=== PATIENT | male | born 1950 | race Caucasian/White ===

== ENCOUNTER 2020-09-22 13:12 | Inpatient (IN) ==
[2020-09-22] MEDS ORDERED: NOREPINEPHRINE 4 MG/4 ML VIAL IV ONE (13:17)
[2020-09-22] MEDS ORDERED: SODIUM CHLORIDE 0.9% 500 ML IV STA (13:18)
[2020-09-22 13:30] LABS: Eosinophils % 0.5 % (0.00-10.9); Hematocrit 26.4 VOL% (42.0-52.0); Hemoglobin 8.1 GM/DL (14.0-18.0); Immature Granulocytes % 8.2 %; Lymphocytes % 27.7 % (21.2-54.2); Mean Corpuscular HGB Conc 30.7 GM/DL (32-36); Mean Corpuscular Volume 98.1 FL (87-102); Mean Platelet Volume 11.1 FL (9.6-12.0); Monocytes % 5.2 % (1.7-12.7); Neutrophils % 58.4 % (38.7-73.9); Platelet Count 103 T/CUMM (130-400); Red Blood Count 2.69 MC/CUMM (3.8-5.5); Red Cell Distribution Width 14.6 % (9.3-17.3); White Blood Count 3.7 T/CUMM (4-12)
[2020-09-22] MEDS: NOREPINEPHRINE 16 MG in SODIUM CHLORIDE 0.9% 234 ML IV PRN (13:41)
[2020-09-22] MEDS ORDERED: NOREPINEPHRINE 8 MG in SODIUM CHLORIDE 0.9% 242 ML IV PRN (13:50)
[2020-09-22 13:51] LABS: INR 1.3; PT Patient Result 14.4 SECS (10.5-12.0)
[2020-09-22 13:53] LABS: Band Neutrophils 7 % (0-10); Burr Cells 1+; Eosinophils 1 % (0-10); Lymphocytes 30 % (20-55); Poikilocytosis 1+; Schistocytes Few; Segmented Neutrophils 55 % (50-85); Total Cells Counted 100
[2020-09-22 13:54] LABS: Elliptocytes Few; Hypochromasia Slight; Platelet Estimate Adequate
[2020-09-22] MEDS ORDERED: EPINEPHrine 1 MG/ML VIAL ONE ×2 (14:01→20:49)
[2020-09-22 14:02] LABS: Albumin 2.7 G/DL (3.4-5.0); Bilirubin,Total 0.4 MG/DL (0.2-1.0); Calcium 7.4 MG/DL (8.5-10.1); Osmolality,Calculated 342.5 MOS/KG (273-304); Total Protein 6.1 G/DL (6.4-8.2)
[2020-09-22 14:06] LABS: Potassium 7.6 MMOL/L (3.5-5.1)
[2020-09-22] MEDS ORDERED: INSULIN REGULAR 100 UNIT/ML ONE (14:09)
[2020-09-22] MEDS ORDERED: SODIUM BICARB INJ 150 MEQ in DEXTROSE 5% 850 ML IV SCH (14:30)
[2020-09-22] MEDS ORDERED: INSULIN REGULAR 100 UNIT/ML IV ONE (14:30)
[2020-09-22] MEDS ORDERED: ALBUTEROL 2.5 MG/3 ML NEB RESP TX PRN (14:34)
[2020-09-22] MEDS ORDERED: ACETAMINOPHEN 325 MG TABLET PO PRN (14:36)
[2020-09-22] MEDS ORDERED: ONDANSETRON 4 MG/2 ML VIAL IV PRN (14:36)
[2020-09-22] MEDS ORDERED: FAMOTIDINE 20 MG/2 ML VIAL IV SCH (15:00)
[2020-09-22] MEDS ORDERED: HEPARIN LOCK FLUSH 500 UNIT/5 ML SYRINGE IV ONE ×3 (15:05→15:07)
[2020-09-22] MEDS ORDERED: DEXTROSE 50% 25 GM/50 ML VIAL IV PRN (15:06)
[2020-09-22] MEDS ORDERED: GLUCAGON 1 MG VIAL IM PRN (15:06)
[2020-09-22 15:28] LABS: ABG Base Excess -23.8 MMOL/L (-2.5-2.5); ABG HCO3 7.3 MMOL/L (20-26); ABG Oxygen Saturation 98.8 % (95-100); ABG PCO2 35.7 MM HG (35-48); ABG TCO2 7.6 MMOL/L (23-27); Pt O2 Delivery Device Ventilator
[2020-09-22 15:33] LABS: ABG PH 6.925 (7.35-7.45)
[2020-09-22] MEDS ORDERED: fentaNYL 100 MCG/2 ML VIAL IV ONE (16:03)
[2020-09-22 16:41] LABS: INR 1.3; PT Patient Result 14.7 SECS (10.5-12.0)
[2020-09-22 16:42] LABS: Partial Thromboplastin Time 48.9 SECS (23.9-33.8)
[2020-09-22 16:48] LABS: CKMB % 1.4 %; High Sensitive Troponin I* 65.1 ng/L (0-78)
[2020-09-22] MEDS ORDERED: HEPARIN 5,000 UNIT/1 ML VIAL IV ONE (16:51)
[2020-09-22] MEDS: fentaNYL INJ 1,250 MCG in SODIUM CHLORIDE 0.9% 225 ML IV PRN ×2 (16:57→20:17)
[2020-09-22 17:00] LABS: Calcium 7.9 MG/DL (8.5-10.1); Osmolality,Calculated 344.1 MOS/KG (273-304)
[2020-09-22 17:02] LABS: Potassium 6.1 MMOL/L (3.5-5.1)
[2020-09-22] MEDS: CISATRACURIUM 10 MG/5 ML VIAL IV PRN ×2 (17:05→20:00)
[2020-09-22] MEDS: SODIUM BICARB INJ 150 MEQ in DEXTROSE 5% 1,000 ML IV SCH (17:05)
[2020-09-22] MEDS: FAMOTIDINE 20 MG/2 ML VIAL IV SCH (17:17)
[2020-09-22 17:21] LABS: ABG Base Excess -24.6 MMOL/L (-2.5-2.5); ABG HCO3 7.7 MMOL/L (20-26); ABG Oxygen Saturation 98.9 % (95-100); ABG PCO2 31.9 MM HG (35-48); ABG TCO2 7.1 MMOL/L (23-27)
[2020-09-22 17:22] LABS: ABG PH 6.964 (7.35-7.45)
[2020-09-22] MEDS: INSULIN REGULAR 100 UNIT/ML IV SCH ×2 (17:51→20:21)
[2020-09-22] MEDS ORDERED: SODIUM BICARBONATE 50 MEQ/50 ML VIAL IV ONE (17:52)
[2020-09-22] MEDS: PIPERACILLIN/TAZOBACTAM 3,375 MG in SODIUM CHLORIDE 0.9% 100 ML IV SCH (18:15)
[2020-09-22] MEDS ORDERED: CISATRACURIUM 10 MG/5 ML VIAL IV STA (18:29)
[2020-09-22 18:42] LABS: Bilirubin,Urine Negative (Negative); Blood, Urine Large mg/dL (Negative); Glucose,Urine (UA) Negative (Negative); Ketones,Urine Negative (Negative); Nitrite,Urine Negative (Negative); Protein,Urine 100 MG/DL; RBC,Urine 12808 /HPF (0-4); Urine Appearance CLOUDY (Clear); Urine Color Red (Yellow); Urine Specific Gravity 1.013 (1.001-1.035); Urine Urobilinogen < 2.0 EU/DL (0.2-1.0)
[2020-09-22] MEDS: MINERAL OIL/PETROLATUM OPH OINT 3.5 GM TUBE BOTH EYES SCH ×2 (18:47→21:35)
[2020-09-22] MEDS: fentaNYL 100 MCG/2 ML VIAL IV PRN ×2 (19:45→21:21)
[2020-09-22] MEDS ORDERED: HEPARIN 10,000 UNIT/10 ML VIAL IV SCH (20:15)
[2020-09-22 21:54] LABS: Hepatitis B Surface Ag Quant < 0.10 Index; Hepatitis B Surface Ag Result Non-Reactive (NonReactive)
[2020-09-22] MEDS: fentaNYL INJ 2,500 MCG in SODIUM CHLORIDE 0.9% 450 ML IV PRN (22:16)
[2020-09-22 23:00] LABS: ABG Base Excess -10.8 MMOL/L (-2.5-2.5); ABG HCO3 15.8 MMOL/L (20-26); ABG PCO2 26.9 MM HG (35-48); ABG PH 7.328 (7.35-7.45); ABG TCO2 13.2 MMOL/L (23-27)
[2020-09-22 23:13] LABS: Basophils % 0.1 % (0.0-0.8); Eosinophils % 0.1 % (0.00-10.9); Hematocrit 20.8 VOL% (42.0-52.0); Immature Granulocytes % 6.4 %; Immature Granulocytes Absolute 0.49 #; Lymphocytes # 0.1 10*3/uL (1.4-4.0); Lymphocytes % 1.2 % (21.2-54.2); Mean Corpuscular HGB Conc 33.7 GM/DL (32-36); Mean Corpuscular Volume 89.7 FL (87-102); Mean Platelet Volume 11.3 FL (9.6-12.0); Monocytes % 6.9 % (1.7-12.7); Neutrophils % 85.3 % (38.7-73.9); Platelet Count 102 T/CUMM (130-400); Red Blood Count 2.32 MC/CUMM (3.8-5.5); Red Cell Distribution Width 14.3 % (9.3-17.3); White Blood Count 7.7 T/CUMM (4-12)
[2020-09-22 23:26] LABS: Alanine Aminotransferase 164 U/L (16-61); Albumin 2.3 G/DL (3.4-5.0); Alkaline Phosphatase 115 U/L (45-117); Aspartate Amino Transferase 247 U/L (0-37); Bilirubin,Total < 0.39 MG/DL (0.2-1.0); Blood Urea Nitrogen 196 MG/DL (7-18); CKMB % 1.2 %; Calcium 7.4 MG/DL (8.5-10.1); Carbon Dioxide 15 MMOL/L (21-32); Estimated Glom Filtration Rate 2 ML/MIN; Glucose 211 MG/DL (74-106); Osmolality,Calculated 346.7 MOS/KG (273-304); Potassium 4.4 MMOL/L (3.5-5.1); Sodium 138 MMOL/L (136-145); Total Protein 5.7 G/DL (6.4-8.2)
[2020-09-22] MEDS ORDERED: SODIUM CHLORIDE 0.9% 1,000 ML IV PRN (23:49)
[2020-09-22 23:51] LABS: INR 1.5; Partial Thromboplastin Time 59.8 SECS (23.9-33.8)
[2020-09-23] MEDS: INSULIN REGULAR 100 UNIT/ML IV SCH ×7 (00:18→22:28)
[2020-09-23] MEDS: CISATRACURIUM 10 MG/5 ML VIAL IV PRN (00:19)
[2020-09-23 01:35] LABS: Band Neutrophils 3 % (0-10); Lymphocytes 2 % (20-55); Segmented Neutrophils 88 % (50-85); Total Cells Counted 100
[2020-09-23 01:36] LABS: Burr Cells 1+; Hypochromasia Slight; Platelet Estimate Decreased
[2020-09-23 01:37] LABS: Microcytosis 1+
[2020-09-23 01:39] LABS: Elliptocytes Few; Poikilocytosis 1+; Schistocytes Few
[2020-09-23] MEDS: fentaNYL INJ 2,500 MCG in SODIUM CHLORIDE 0.9% 450 ML IV PRN (03:48)
[2020-09-23 05:08] LABS: ABG Base Excess -4.7 MMOL/L (-2.5-2.5); ABG HCO3 20.5 MMOL/L (20-26); ABG PCO2 27.7 MM HG (35-48); ABG PH 7.435 (7.35-7.45); ABG TCO2 17.1 MMOL/L (23-27)
[2020-09-23 05:39] LABS: Albumin 2.3 G/DL (3.4-5.0); Bilirubin,Total 0.4 MG/DL (0.2-1.0); Calcium 6.8 MG/DL (8.5-10.1); Osmolality,Calculated 347.3 MOS/KG (273-304); Potassium 3.9 MMOL/L (3.5-5.1); Total Protein 5.1 G/DL (6.4-8.2)
[2020-09-23 05:41] LABS: High Sensitive Troponin I* 162.1 ng/L (0-78)
[2020-09-23] MEDS: PIPERACILLIN/TAZOBACTAM 3,375 MG in SODIUM CHLORIDE 0.9% 100 ML IV SCH ×2 (05:51→16:45)
[2020-09-23] MEDS: SODIUM BICARB INJ 150 MEQ in DEXTROSE 5% 1,000 ML IV SCH ×2 (05:52)
[2020-09-23 06:12] LABS: RBC,Urine 20788 /HPF (0-4)
[2020-09-23 06:14] LABS: Glucose,Urine (UA) Negative (Negative); Ketones,Urine Negative (Negative); Nitrite,Urine Negative (Negative); Protein,Urine >=500 MG/DL; Urine Appearance Cloudy (Clear); Urine Color Red (Yellow); Urine Specific Gravity 1.005 (1.001-1.035)
[2020-09-23 06:15] LABS: Bilirubin,Urine Negative (Negative); Blood, Urine 50 mg/dL (Negative); Urine Urobilinogen < 2.0 EU/DL (0.2-1.0)
[2020-09-23 07:41] LABS: Eosinophils % 0.2 % (0.00-10.9); Hematocrit 24.9 VOL% (42.0-52.0); Immature Granulocytes % 11.2 %; Immature Granulocytes Absolute 0.62 #; Lymphocytes # 0.2 10*3/uL (1.4-4.0); Lymphocytes % 2.9 % (21.2-54.2); Mean Corpuscular HGB Conc 34.1 GM/DL (32-36); Mean Corpuscular Volume 85.9 FL (87-102); Mean Platelet Volume 10.7 FL (9.6-12.0); Monocytes % 6.9 % (1.7-12.7); Neutrophils % 78.8 % (38.7-73.9); Red Cell Distribution Width 14.7 % (9.3-17.3); White Blood Count 5.5 T/CUMM (4-12)
[2020-09-23 07:43] LABS: Hemoglobin 8.5 GM/DL (14.0-18.0); Platelet Count 65 T/CUMM (130-400)
[2020-09-23 07:58] LABS: Eosinophils 1 % (0-10); Lymphocytes 2 % (20-55); Segmented Neutrophils 90 % (50-85); Total Cells Counted 100
[2020-09-23 07:59] LABS: Burr Cells Slight; Hypochromasia Slight; Microcytosis 1+
[2020-09-23 08:00] LABS: Ovalocytes Slight; Platelet Estimate Decreased
[2020-09-23] MEDS ORDERED: CALCIUM GLUCONATE 1,000 MG in SODIUM CHLORIDE 0.9% 100 ML IV ONE (08:00)
[2020-09-23] MEDS: MINERAL OIL/PETROLATUM OPH OINT 3.5 GM TUBE BOTH EYES SCH ×2 (08:02→20:10)
[2020-09-23] MEDS: fentaNYL INJ 2,500 MCG in SODIUM CHLORIDE 0.9% 75 ML IV PRN ×4 (09:09→22:02)
[2020-09-23] MEDS: NOREPINEPHRINE 16 MG in SODIUM CHLORIDE 0.9% 234 ML IV PRN (10:43)
[2020-09-23 10:48] LABS: Eosinophils % 0.2 % (0.00-10.9); Hematocrit 25.9 VOL% (42.0-52.0); Hemoglobin 8.8 GM/DL (14.0-18.0); Immature Granulocytes Absolute 0.39 #; Lymphocytes # 0.1 10*3/uL (1.4-4.0); Mean Corpuscular Volume 86.6 FL (87-102); Mean Platelet Volume 11.7 FL (9.6-12.0); Monocytes % 4.3 % (1.7-12.7); Neutrophils % 86.5 % (38.7-73.9); Platelet Count 61 T/CUMM (130-400); Red Blood Count 2.99 MC/CUMM (3.8-5.5); Red Cell Distribution Width 15.1 % (9.3-17.3); White Blood Count 5.6 T/CUMM (4-12)
[2020-09-23 10:59] LABS: INR 1.5; PT Patient Result 16.7 SECS (10.5-12.0); Partial Thromboplastin Time 47.8 SECS (23.9-33.8)
[2020-09-23 11:04] LABS: Osmolality,Calculated 348.1 MOS/KG (273-304); Potassium 4.3 MMOL/L (3.5-5.1)
[2020-09-23 11:06] LABS: Band Neutrophils 5 % (0-10); Lymphocytes 2 % (20-55); Segmented Neutrophils 88 % (50-85); Total Cells Counted 100
[2020-09-23 11:07] LABS: Hypochromasia Slight; Microcytosis 1+; Ovalocytes Slight
[2020-09-23 11:08] LABS: Platelet Estimate Decreased
[2020-09-23 11:16] LABS: ABG Base Excess -2.7 MMOL/L (-2.5-2.5); ABG HCO3 22.2 MMOL/L (20-26); ABG PCO2 26.5 MM HG (35-48); ABG PH 7.484 (7.35-7.45); ABG TCO2 18.3 MMOL/L (23-27)
[2020-09-23] MEDS: SODIUM BICARB INJ 50 MEQ in SODIUM CHLORIDE 0.45% 1,000 ML IV SCH ×2 (12:16→22:00)
[2020-09-23] MEDS: fentaNYL 100 MCG/2 ML VIAL IV PRN (14:20)
[2020-09-23] MEDS: FAMOTIDINE 20 MG/2 ML VIAL IV SCH (15:58)
[2020-09-23 17:15] LABS: Basophils % 0.2 % (0.0-0.8); Eosinophils % 0.2 % (0.00-10.9); Hematocrit 29.2 VOL% (42.0-52.0); Hemoglobin 10.1 GM/DL (14.0-18.0); Immature Granulocytes % 8.7 %; Immature Granulocytes Absolute 0.56 #; Lymphocytes # 0.1 10*3/uL (1.4-4.0); Lymphocytes % 1.6 % (21.2-54.2); Mean Corpuscular HGB Conc 34.6 GM/DL (32-36); Mean Corpuscular Volume 84.4 FL (87-102); Mean Platelet Volume 11.3 FL (9.6-12.0); Monocytes % 4.2 % (1.7-12.7); Neutrophils % 85.1 % (38.7-73.9); Platelet Count 58 T/CUMM (130-400); Red Blood Count 3.46 MC/CUMM (3.8-5.5); White Blood Count 6.4 T/CUMM (4-12)
[2020-09-23 17:23] LABS: INR 1.4; PT Patient Result 15.5 SECS (10.5-12.0)
[2020-09-23 17:24] LABS: Partial Thromboplastin Time 42.8 SECS (23.9-33.8)
[2020-09-23 17:44] LABS: Calcium 7.7 MG/DL (8.5-10.1); Osmolality,Calculated 300.7 MOS/KG (273-304); Potassium 3.9 MMOL/L (3.5-5.1)
[2020-09-23 17:45] LABS: Band Neutrophils 15 % (0-10); Lymphocytes 5 % (20-55); Metamyelocytes 1 %; Microcytosis Slight; Nucleated Red Blood Cells 1 (0-5); Platelet Estimate Decreased; Segmented Neutrophils 76 % (50-85); Total Cells Counted 100
[2020-09-23 23:09] LABS: Basophils % 0.2 % (0.0-0.8); Eosinophils % 0.2 % (0.00-10.9); Hemoglobin 8.9 GM/DL (14.0-18.0); Immature Granulocytes % 3.4 %; Immature Granulocytes Absolute 0.21 #; Lymphocytes # 0.2 10*3/uL (1.4-4.0); Lymphocytes % 2.8 % (21.2-54.2); Mean Corpuscular HGB Conc 34.2 GM/DL (32-36); Mean Corpuscular Volume 86.4 FL (87-102); Mean Platelet Volume 11.8 FL (9.6-12.0); Monocytes % 6.2 % (1.7-12.7); Neutrophils % 87.2 % (38.7-73.9); Platelet Count 44 T/CUMM (130-400); Red Blood Count 3.01 MC/CUMM (3.8-5.5); Red Cell Distribution Width 15.3 % (9.3-17.3); White Blood Count 6.1 T/CUMM (4-12)
[2020-09-23 23:19] LABS: INR 1.4; PT Patient Result 15.3 SECS (10.5-12.0); Partial Thromboplastin Time 47.7 SECS (23.9-33.8)
[2020-09-23 23:28] LABS: Albumin 1.8 G/DL (3.4-5.0); Bilirubin,Total 0.7 MG/DL (0.2-1.0); Calcium 6.6 MG/DL (8.5-10.1); Osmolality,Calculated 307.8 MOS/KG (273-304); Total Protein 5.3 G/DL (6.4-8.2)
[2020-09-23 23:33] LABS: High Sensitive Troponin I* 79.9 ng/L (0-78)
[2020-09-24] MEDS: INSULIN REGULAR 100 UNIT/ML IV SCH ×4 (01:33→08:57)
[2020-09-24] MEDS: fentaNYL INJ 2,500 MCG in SODIUM CHLORIDE 0.9% 75 ML IV PRN ×2 (01:34→06:40)
[2020-09-24 01:39] LABS: Band Neutrophils 2 % (0-10); Eosinophils 1 % (0-10); Lymphocytes 7 % (20-55); Platelet Estimate Decreased; Segmented Neutrophils 89 % (50-85); Total Cells Counted 100
[2020-09-24 01:41] LABS: Burr Cells 1+; Microcytosis 1+; Schistocytes Few
[2020-09-24 01:42] LABS: Polychromasia Slight
[2020-09-24 05:08] LABS: Eosinophils % 0.6 % (0.00-10.9); Hematocrit 25.5 VOL% (42.0-52.0); Hemoglobin 8.8 GM/DL (14.0-18.0); Immature Granulocytes % 11.5 %; Immature Granulocytes Absolute 0.71 #; Lymphocytes # 0.2 10*3/uL (1.4-4.0); Lymphocytes % 3.6 % (21.2-54.2); Mean Corpuscular HGB Conc 34.5 GM/DL (32-36); Mean Corpuscular Volume 85.9 FL (87-102); Monocytes % 3.4 % (1.7-12.7); Neutrophils % 80.9 % (38.7-73.9); Red Blood Count 2.97 MC/CUMM (3.8-5.5); Red Cell Distribution Width 15.3 % (9.3-17.3); White Blood Count 6.2 T/CUMM (4-12)
[2020-09-24 05:10] LABS: ABG Base Excess 2.2 MMOL/L (-2.5-2.5); ABG HCO3 26.4 MMOL/L (20-26); ABG Oxygen Saturation 99.5 % (95-100); ABG PCO2 26.9 MM HG (35-48); ABG PH 7.558 (7.35-7.45)
[2020-09-24 05:17] LABS: INR 1.3; PT Patient Result 14.6 SECS (10.5-12.0); Platelet Count 38 T/CUMM (130-400)
[2020-09-24 05:21] LABS: Partial Thromboplastin Time 44.4 SECS (23.9-33.8)
[2020-09-24 05:35] LABS: Band Neutrophils 3 % (0-10); Hypochromasia Slight; Lymphocytes 5 % (20-55); Metamyelocytes 1 %; Segmented Neutrophils 89 % (50-85); Total Cells Counted 100
[2020-09-24 05:36] LABS: Burr Cells Few; Microcytosis 1+; Platelet Estimate Decreased
[2020-09-24] MEDS: PIPERACILLIN/TAZOBACTAM 3,375 MG in SODIUM CHLORIDE 0.9% 100 ML IV SCH (05:39)
[2020-09-24 05:47] LABS: Albumin 1.9 G/DL (3.4-5.0); Bilirubin,Total 0.7 MG/DL (0.2-1.0); Calcium 6.5 MG/DL (8.5-10.1); Osmolality,Calculated 308.8 MOS/KG (273-304); Potassium 5.4 MMOL/L (3.5-5.1); Total Protein 5.2 G/DL (6.4-8.2)
[2020-09-24 05:49] LABS: CKMB % 0.9 %; High Sensitive Troponin I* 75.8 ng/L (0-78)
[2020-09-24] MEDS: MINERAL OIL/PETROLATUM OPH OINT 3.5 GM TUBE BOTH EYES SCH ×2 (08:36→21:35)
[2020-09-24] MEDS: SODIUM BICARB INJ 50 MEQ in SODIUM CHLORIDE 0.45% 1,000 ML IV SCH (09:02)
[2020-09-24 10:54] LABS: ABG Base Excess 1.2 MMOL/L (-2.5-2.5); ABG HCO3 25.5 MMOL/L (20-26); ABG Oxygen Saturation 99.2 % (95-100); ABG PCO2 28.4 MM HG (35-48); ABG PH 7.522 (7.35-7.45); ABG TCO2 20.9 MMOL/L (23-27)
[2020-09-24 10:56] LABS: Basophils % 0.1 % (0.0-0.8); Eosinophils # 0.1 10*3/uL (0.0-0.87); Eosinophils % 0.7 % (0.00-10.9); Hematocrit 24.7 VOL% (42.0-52.0); Hemoglobin 8.8 GM/DL (14.0-18.0); Immature Granulocytes % 9.2 %; Immature Granulocytes Absolute 0.78 #; Lymphocytes # 0.2 10*3/uL (1.4-4.0); Lymphocytes % 2.7 % (21.2-54.2); Mean Corpuscular HGB Conc 35.6 GM/DL (32-36); Mean Corpuscular Volume 84.6 FL (87-102); Mean Platelet Volume 13.3 FL (9.6-12.0); Monocytes % 5.5 % (1.7-12.7); Neutrophils % 81.8 % (38.7-73.9); Red Blood Count 2.92 MC/CUMM (3.8-5.5); Red Cell Distribution Width 15.6 % (9.3-17.3); White Blood Count 8.5 T/CUMM (4-12)
[2020-09-24 11:01] LABS: Platelet Count 34 T/CUMM (130-400)
[2020-09-24 11:06] LABS: INR 1.2; PT Patient Result 13.7 SECS (10.5-12.0)
[2020-09-24 11:22] LABS: Calcium 6.4 MG/DL (8.5-10.1); Potassium 5.4 MMOL/L (3.5-5.1)
[2020-09-24 11:31] LABS: Band Neutrophils 5 % (0-10); Hypochromasia Slight; Lymphocytes 7 % (20-55); Segmented Neutrophils 81 % (50-85); Total Cells Counted 100
[2020-09-24 11:32] LABS: Microcytosis 1+
[2020-09-24 11:33] LABS: Burr Cells Few; Platelet Estimate Decreased
[2020-09-24] MEDS: MEROPENEM 500 MG in SODIUM CHLORIDE 0.9% 100 ML IV SCH (13:11)
[2020-09-24] MEDS: INSULIN REGULAR 100 UNIT/ML SUBCUT SCH ×3 (13:12→23:23)
[2020-09-24 15:57] LABS: Basophils % 0.2 % (0.0-0.8); Eosinophils % 0.3 % (0.00-10.9); Hematocrit 25.1 VOL% (42.0-52.0); Hemoglobin 8.4 GM/DL (14.0-18.0); Immature Granulocytes % 1.7 %; Lymphocytes # 0.3 10*3/uL (1.4-4.0); Lymphocytes % 2.8 % (21.2-54.2); Mean Corpuscular HGB Conc 33.5 GM/DL (32-36); Mean Platelet Volume 12.3 FL (9.6-12.0); Monocytes % 5.8 % (1.7-12.7); NRBC # 0.02 10*3/uL; Neutrophils % 89.2 % (38.7-73.9); Red Blood Count 2.82 MC/CUMM (3.8-5.5); Red Cell Distribution Width 15.7 % (9.3-17.3); White Blood Count 11.6 T/CUMM (4-12)
[2020-09-24 16:02] LABS: Platelet Count 37 T/CUMM (130-400)
[2020-09-24 16:06] LABS: INR 1.2; PT Patient Result 13.4 SECS (10.5-12.0)
[2020-09-24 16:12] LABS: Partial Thromboplastin Time 43.3 SECS (23.9-33.8)
[2020-09-24] MEDS: FAMOTIDINE 20 MG/2 ML VIAL IV SCH (16:21)
[2020-09-24 16:22] LABS: Albumin 1.8 G/DL (3.4-5.0); Bilirubin,Total 0.7 MG/DL (0.2-1.0); Osmolality,Calculated 292.8 MOS/KG (273-304); Potassium 4.1 MMOL/L (3.5-5.1); Total Protein 5.4 G/DL (6.4-8.2)
[2020-09-24 16:29] LABS: Anisocytosis 2+; Band Neutrophils 1 % (0-10); Lymphocytes 8 % (20-55); Metamyelocytes 3 %; Myelocytes 1 %; Platelet Estimate Increased; Poikilocytosis 2+; Segmented Neutrophils 87 % (50-85); Total Cells Counted 100
[2020-09-24 16:45] LABS: ABG Base Excess 1.1 MMOL/L (-2.5-2.5); ABG HCO3 25.4 MMOL/L (20-26); ABG Oxygen Saturation 99.3 % (95-100); ABG PCO2 30.6 MM HG (35-48)
[2020-09-25] MEDS: INSULIN REGULAR 100 UNIT/ML SUBCUT SCH ×4 (00:42→11:21)
[2020-09-25 05:19] LABS: ABG Base Excess 0.3 MMOL/L (-2.5-2.5); ABG HCO3 24.8 MMOL/L (20-26); ABG Oxygen Saturation 99.6 % (95-100); ABG PCO2 25.5 MM HG (35-48); ABG PH 7.548 (7.35-7.45); ABG TCO2 20.8 MMOL/L (23-27)
[2020-09-25 05:27] LABS: Basophils % 0.1 % (0.0-0.8); Hematocrit 23.1 VOL% (42.0-52.0); Hemoglobin 7.8 GM/DL (14.0-18.0); Immature Granulocytes % 0.8 %; Immature Granulocytes Absolute 0.11 #; Lymphocytes # 0.4 10*3/uL (1.4-4.0); Lymphocytes % 2.8 % (21.2-54.2); Mean Corpuscular HGB Conc 33.8 GM/DL (32-36); Mean Corpuscular Volume 87.8 FL (87-102); Mean Platelet Volume 12.5 FL (9.6-12.0); Monocytes % 2.8 % (1.7-12.7); Neutrophils % 93.5 % (38.7-73.9); Red Blood Count 2.63 MC/CUMM (3.8-5.5); Red Cell Distribution Width 15.6 % (9.3-17.3); White Blood Count 13.7 T/CUMM (4-12)
[2020-09-25 05:35] LABS: Platelet Count 44 T/CUMM (130-400)
[2020-09-25 05:49] LABS: Albumin 1.6 G/DL (3.4-5.0); Bilirubin,Total 0.6 MG/DL (0.2-1.0); Calcium 7.2 MG/DL (8.5-10.1); Osmolality,Calculated 307.3 MOS/KG (273-304); Potassium 3.6 MMOL/L (3.5-5.1); Total Protein 5.2 G/DL (6.4-8.2)
[2020-09-25 07:37] LABS: Band Neutrophils 5 % (0-10); Hypochromasia Slight; Lymphocytes 3 % (20-55); Platelet Estimate Decreased; Segmented Neutrophils 89 % (50-85); Total Cells Counted 100
[2020-09-25] MEDS: MINERAL OIL/PETROLATUM OPH OINT 3.5 GM TUBE BOTH EYES SCH (08:32)
[2020-09-25] MEDS: SODIUM BICARB INJ 50 MEQ in SODIUM CHLORIDE 0.45% 1,000 ML IV SCH (08:32)
[2020-09-25 09:47] VITALS: BP 107/52
[2020-09-25] MEDS ORDERED: DEXAMETHASONE 10 MG/1 ML VIAL IV SCH (10:00)
[2020-09-25] MEDS: MEROPENEM 500 MG in SODIUM CHLORIDE 0.9% 100 ML IV SCH (10:40)
[2020-09-25] MEDS ORDERED: METOCLOPRAMIDE 10 MG/2 ML VIAL IV SCH ×2 (12:00→21:00)
[2020-09-25] MEDS ORDERED: MORPHINE 4 MG/1 ML VIAL IV PRN (14:40)
[2020-09-25] MEDS ORDERED: LORazepam 2 MG/1 ML VIAL IV PRN (14:40)
== END 2020-09-25 15:10 | disposition expired | DRG 682 ==
LOC: N.ED 13:12 → SUATTDRO 14:34 → N.EDINP 14:34 → N.ICU 15:45
PROVIDERS: ADMIT Internal Medicine; ATTEND Internal Medicine